=== PATIENT | female | born 1980 | race Caucasian/White ===

== ENCOUNTER 2020-09-22 19:39 | Emergency (ER) | payer OTHER ==
[~2020-09-22] VITALS: Ht 162.6 cm; Wt 104.3 kg
[~2020-09-22 19:39] MED LIST: FIORICET; PERCOCET 5-3251 EACH PO
[2020-09-22 20:03] VITALS: BP 146/97
[2020-09-22 20:17] LABS: URINE BILIRUBIN NEGATIVE (Negative); URINE BLOOD NEGATIVE (Negative); URINE CLARITY CLEAR; URINE COLOR YELLOW; URINE GLUCOSE-RANDOM NEGATIVE (Negative); URINE KETONES NEGATIVE (Negative); URINE LEUKOCYTES-REFLEX NEGATIVE (Negative); URINE NITRITE-REFLEX NEGATIVE (Negative); URINE PROTEIN NEGATIVE (Negative); URINE UROBILINOGEN 0.2 E.U./dl (0.2-1.0)
[2020-09-22] MEDS ORDERED: MEDROLDOSEPACK PO (20:23)
[2020-09-22] MEDS ORDERED: TRAMADOL 50 MG50 MG PO (20:23)
== END 2020-09-22 20:47 | disposition home or self-care (01) ==
LOC: M.ERS 19:39
PROVIDERS: Nurse Practitioner Psychiatric/Mental Health
DX: M54.41 Lumbago with sciatica, right side (principal); Z88.6 Allergy status to analgesic agent; Z88.5 Allergy status to narcotic agent; Z98.51 Tubal ligation status